=== PATIENT | male | born 1945 ===

== ENCOUNTER 2025-05-12 15:12 | Observation (INO) ==
--- NOTE | 2025-05-12 15:29 | ED Physician Documentation ---
History of Present Illness Stated complaint Stated Complaint: PX Chief complaint Chief Complaint: General History obtained from History obtained from: Patient and Family History of Present Illness Pain level max: 8 Pain level now: 8 Additonal information Additional information: Patient is an 79-year-old male who presents to the emergency department complaining of urination difficulty today. He states that he started having blood in his urine today and then started urinating out large clotted blood. He states that he has not been able to urinate since this morning. Began having abdominal pain so came into the emergency department. He states this has happened to him several times in the past. Has had cauterization on cystoscopy several times. He is not on blood thinners. He does take Jardiance. No fevers or chills. No vomiting. Nothing makes it better or worse. Review of Systems Constitutional Denies: Fever or Chills Ears, nose, mouth, and throat Denies: Neck pain Respiratory Denies: Cough Gastrointestinal Denies: Vomiting, Lavon blood emesis or Coffee grounds in vomit Genitourinary Denies: Flank pain Musculoskeletal Denies: Back pain or Neck pain Integumentary/Breast Denies: Rash Neurological Denies: Headache or General weakness Meds/Allgy Home Medications Ambulatory Orders Medication Instructions Recorded Confirmed atorvastatin 80 mg tablet mg 05/12/25 empagliflozin 25 mg tablet mg 05/12/25 (Jardiance) losartan 50 mg tablet mg 05/12/25 metformin 1,000 mg tablet mg 05/12/25 sertraline 100 mg tablet mg 05/12/25 tamsulosin 0.4 mg capsule mg PO 05/12/25 Allergies Allergies Allergy/AdvReac Type Severity Reaction Status Date / Time No Known Drug Allergies Allergy Verified 05/12/25 15:18 PFSH Active Problems All Active Problems (Updated 05/12/25 @ 16:32 by Enrrique Varghese MD) Acute urinary retention (Acute) Hematuria (Acute) Acute blood loss anemia (Acute) Hemorrhagic cystitis (Acute) Social History Social History Do you feel safe in your home environment?: Yes History of physical, verbal, emotional, or financial abuse?: No Exam Exam Vital Signs: Vital Signs x48h Temp Pulse Resp BP Pulse Ox 05/12/25 15:14 36.3 C L 108 H 20 235/142 H 98 Constitutional normal general appearance Patient appears very uncomfortable, complaining of lower abdominal pain HENMT oral mucous membranes normal Eyes PERRL Neck/C-Spine trachea midline Respiratory breath sounds equal bilaterally and normal respiratory effort Cardiovascular normal heart rate noted and regular rhythm noted Gastrointestinal Tender palpation across the lower abdomen, bladder distended Genitourinary no CVA tenderness Back/Pelvis no thoracic spine tenderness and no lumbar spine tenderness Psychiatry mental status grossly normal and oriented x3 Skin skin color normal Results Vitals Vitals: Vital Signs - 24 hr 05/12/25 15:14 Temperature 36.3 C L Temperature Source Temporal Artery Scan Pulse Rate 108 H Respiratory Rate 20 Blood Pressure 235/142 H O2 Saturation 98 O2 Source Room air Pain Intensity 10 Oxygen O2 Source Room air Labs Labs: Laboratory Tests 05/12/25 15:43 WBC 6.4 RBC 4.99 Hgb 14.4 Hct 44.5 MCV 89.2 MCH 28.9 MCHC 32.4 RDW 15.4 H Plt Count 153 MPV 10.4 Neut # (Auto) 4.6 Lymph # (Auto) 1.2 L [place] # (Auto) 0.4 Eos # (Auto) 0.1 Baso # (Auto) 0.0 Absolute Nucleated RBC 0.00 Nucleated RBC % 0.0 PT 12.0 INR 1.1 APTT 29.4 Sodium 140 Potassium 4.5 Chloride 103 Carbon Dioxide 23 Anion Gap 14.0 H BUN 31 H Creatinine 1.6 H Estimated GFR (MDRD) 42 L Glucose 181 H Calcium 10.9 H Total Bilirubin 0.6 AST 9 L ALT 10 Alkaline Phosphatase 45 Total Protein 7.6 Albumin 4.8 Globulin 2.8 Albumin/Globulin Ratio 1.7 Lipase 17 PD Medical Decision Making ED course Complexity details: reviewed results, re-evaluated patient, considered differential and d/w patient ED course: A three-way Klein catheter was placed with gross blood returned. Continuous bladder irrigation started. Blood pressure and heart rate both decreased. No significant lab abnormalities. Discussed the case with Dr. Robbins, urology on- call, recommends admission to the hospitalist service and he will plan on cystoscopy in the morning. Patient is well-appearing, nontoxic. Afebrile. Discussed the case with the hospitalist who accepts. This document was made in part using voice recognition software. While efforts are made to proofread this document, sound alike and grammatical errors may occur. Discharge Plan Discharge Patient Disposition: 66 [facility] DC/Xfer Condition: Stable Clinical Impression: Hemorrhagic cystitis, Hematuria, Acute urinary retention Prescriptions: No Action losartan 50 mg tablet atorvastatin 80 mg tablet sertraline 100 mg tablet tamsulosin 0.4 mg capsule PO metformin 1,000 mg tablet Jardiance 25 mg tablet Print Language: [place]
[2025-05-12 15:51] LABS: HCT - HEMATOCRIT 44.5 % (42.0-52.0); HGB - HEMOGLOBIN 14.4 g/dL (14.0-18.0); MEAN PLATELET VOLUME 10.4 fL (7.4-11.4); NRBC ABSOLUTE COUNT (AUTO) 0.00 x10^3/uL; NUCLEATED RED BLOOD CELLS AUTO 0.0 /100WBC; PLT - PLATELET COUNT 153 10^3/uL (130-450); RED CELL DISTRIBUTION WIDTH 15.4 % (12.0-15.0)
--- NOTE | 2025-05-12 15:59 | HISTORY & PHYSICAL EXAMINATION ---
Chief Complaint Chief Complaint Chief Complaint: hematuria History of Present Illness Admitted From Admitted From:: ER History Obtained From Records Reviewed: ER History obtained from: patient Exam Limitations: no prior hx History of Present Illness HPI Comment/Other: Tony is an 79-year-old male with history of prostate cancer which was treated with radiation therapy about 9 years ago. 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 He also had hyperbaric oxygen therapy for his radiation cystitis His last major bleeding episode was approximately in November of this year. He denies abdominal surgery or prostate artery embolization for bleeding varices He comes today with sudden onset gross hematuria. Three-way Emndez catheter was placed in the ER and he remains on continuous bladder irrigation. It is grossly bloody but does appear to be lessening. He is hemodynamically stable and his lab work is encouraging with a hemoglobin of 14.4. His creatinine is 1.6 with unclear baseline. He is diabetic and does take Jardiance. Colonoscopy Questionnaire In the last 30 days have you experienced these symptoms? PFSH Active Problems All Active Problems (Updated 05/12/25 @ 18:27 by Benton Robbins MD) Acute urinary retention (Acute) Hematuria (Acute) Acute blood loss anemia (Acute) Hemorrhagic cystitis (Acute) Medical History Medical History (Updated 05/12/25 @ 18:27 by Benton Robbins MD) High cholesterol Depression Diabetes Hypertension Social History Social History (Updated 05/12/25 @ 17:37 by Mary Penaloza RN) Smoking Status: Unknown if ever smoked Living arrangement: At home Do you feel safe in your home environment?: Yes History of physical, verbal, emotional, or financial abuse?: No Meds/Allgy Home Medications Ambulatory Orders Medication Instructions Recorded Confirmed atorvastatin 80 mg tablet mg 05/12/25 empagliflozin 25 mg tablet mg 05/12/25 (Jardiance) losartan 50 mg tablet mg 05/12/25 metformin 1,000 mg tablet mg 05/12/25 sertraline 100 mg tablet mg 05/12/25 tamsulosin 0.4 mg capsule mg PO 05/12/25 Allergies Allergies Allergy/AdvReac Type Severity Reaction Status Date / Time No Known Drug Allergies Allergy Verified 05/12/25 15:18 Results Lab Results Lab results reviewed: Yes 05/12/25 15:43 05/12/25 15:43 Other Lab Results: Lab Results x24hrs 05/12/25 Range/Units 15:43 WBC 6.4 (4.8-10.8) x10^3/uL RBC 4.99 (4.70-6.10) 10^6/uL Hgb 14.4 (14.0-18.0) g/dL Hct 44.5 (42.0-52.0) % MCV 89.2 (80.0-94.0) fL MCH 28.9 (27.0-31.0) pg MCHC 32.4 (32.0-36.0) g/dL RDW 15.4 H (12.0-15.0) % Plt Count 153 (130-450) 10^3/uL MPV 10.4 (7.4-11.4) fL Neut # (Auto) 4.6 (1.5-6.6) 10^3/uL Lymph # (Auto) 1.2 L (1.5-3.5) 10^3/uL [place] # (Auto) 0.4 (0.0-1.0) 10^3/uL Eos # (Auto) 0.1 (0.0-0.7) 10^3/uL Baso # (Auto) 0.0 (0.0-0.1) 10^3/uL Absolute Nucleated RBC 0.00 x10^3/uL Nucleated RBC % 0.0 /100WBC Exam Exam Vital Signs: Vital Signs x48h Temp Pulse Resp BP Pulse Ox 05/12/25 15:14 36.3 C L 108 H 20 235/[address], red translucent effluent on slow drip CBI Impression/Plan Problem List (1) Hematuria: Plan: 79-year-old male with history of prostate cancer treated with radiation therapy 9 years ago with recurrent radiation cystitis and hematuria now presents with similar gross hematuria. Admitted to the medical service N.p.o./IV fluids Add-on for cystoscopy, clot evacuation, fulguration of bleeding areas. The risks, benefits, alternatives were discussed with the patient. Specific risks of infection, bleeding, injury to adjacent structures, need for additional procedures, failure of therapy, anesthesia risks including heart attack, stroke, pulmonary embolization were discussed He will be added on for tomorrow morning The patient states understanding and consents to the above plan Qualifiers: Hematuria type: gross Qualified Code(s): R31.0 - Gross hematuria
[2025-05-12 16:04] LABS: ALT ALANINE AMINOTRANSFERASE 10.0 IU/L (10-60); AST ASPARTATE AMINOTRANSFERASE 9.0 IU/L (10-42); BUN - BLOOD UREA NITROGEN 31.0 mg/dL (6-20); CARBON DIOXIDE - CO2 23.0 mmol/L (21-32); CREATININE 1.6 mg/dL (0.6-1.3); GFR - MDRD 42.0 (>89)
[2025-05-12 16:06] LABS: INR 1.1 (0.8-1.2); PT - PROTHROMBIN TIME 12.0 secs (9.9-12.6)
[2025-05-12] MEDS: LIDOCAINE 2% URO-JET 5 ML SYRINGE UR STA (17:07)
[2025-05-12] MEDS ORDERED: ONDANSETRON ODT 4 MG TABLET TL PRN (17:48)
[2025-05-12] MEDS ORDERED: ONDANSETRON 4 MG/2 ML VIAL IVP PRN (17:48)
[2025-05-12] MEDS: INSULIN LISPRO 300 UNIT/3 ML PEN SUBQ SCH (17:55)
[2025-05-12] MEDS: SODIUM CHLORIDE 0.9% 1,000 ML IV SCH (18:55)
[2025-05-12] MEDS: SODIUM CHLORIDE FLUSH 0.9% 10 ML SYRINGE IVP SCH (19:00)
--- NOTE | 2025-05-12 19:04 | CONSULTATION NOTE ---
Referring Provider Name of Referring Provider:: Benton Robbins MD Consult Date: 05/12/25 Chief Complaint Chief Complaint Chief Complaint: Bloody urine History of Present Illness Admitted From Admitted From:: Home History Obtained From Records Reviewed: [facility] History obtained from: Patient and daughter Exam Limitations: None History of Present Illness HPI Comment/Other: This randal gentleman is an 79-year-old male that has a history of prostate cancer from 9 years ago. He has had a prostatectomy, radiation. Since that time he has problems with intermittent hematuria. 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 He is frustrated because he alternates between urinary retention and urinary incontinence. He does not understand the mechanics of his bladder or urinary system. He has also had a history of kidney stones. He does not know was more painful, kidney stones or urinary retention with bladder spasm. He is urologist is Dr. Rolly Thompson with [facility]. He thinks that Dr. Thompson is frustrated with him because he cannot seem to "figure out what is wrong with me". He has a house in [place]. And [place] and was here fishing. The patient is not on blood thinners. He has not had any constipation. But he does have intermittent diarrhea. He had diarrhea yesterday and today and took 2 Imodium this morning and 1 Imodium an hour later. No blood in the stool. Accompanying this was bloody urine. The blood then turned into torin blood clots and he could not pee starting this morning. The abdominal pain has been terrible. Is located over the lower abdomen and radiated up into his flanks. He says almost as bad as his kidney stones. He denies fever, chills. On presentation his temperature was 36.3, heart rate was 108, respirations 20, O2 sat 98% on room air and his blood pressure was 235/142. A Klein was placed and his blood pressure dropped to 109/75, pulse rate dropped to 90. No imaging has been done. Anion gap was 14. BUN 31, creatinine 1.6. Glucose 181. Calcium 10.9. Potassium normal. White cell count was 6.4, hemoglobin 14.4. The Klein placement did result in immediate urine output. There is quite a bit of clots. Urology was consulted and the patient is now on continuous bladder irrigation and the plan is for him to go to the operating room tomorrow for cystoscopy. Urology is asking that we consult for control of his medical issues. On review of systems the patient states that he does have hearing aids in place. Vision is going. No dentures. He denies coughing, wheezing, bronchitis. He does have obstructive sleep apnea and is supposed to be using his CPAP mask but stopped using it about 2 years ago because getting up to urinate frequently at night made it inconvenient to put the CPAP mask back on. He does not know if it made a difference on his apnea or not. He has never had angina, congestive heart failure, arrhythmia. He has had a recent change in bowel habits and that he has had the diarrhea but he states that he has had diarrhea off and on over the years. It comes and goes. It is watery. No blood. No recent weight changes. He has osteoarthritis. He has already had 1 knee replacement, and 2 hip replacements. Currently he is using a cane because his right knee really hurts and he is afraid of falling because it will go out from underneath him. No rashes. He is depressed and it comes and goes. He has always had depression and is not any worse than usual. No suicidal ideation. But he just feels an overall loss of energy over the last couple of years. He can sleep 12 hours at night, get up and eat breakfast, and go back to sleep again. He denies fevers, sweats at night. Memory loss is slightly progressive over the last 2 years. He has 4 children. One of his daughters moved to live with him 2 years ago. She did it because she has triple negative breast cancer and it was easier for her to move in with him so that she can complete her therapy. She has noticed that he is having more memory problems, more word finding problems, and just fatigue. But no syncope, seizures, dizziness. He is still self-sufficient. He drives a car, does laundry, cooking, cleaning. Occasionally he does little help with paying the bills. Meds/Allgy Home Medications Ambulatory Orders Medication Instructions Recorded Confirmed atorvastatin 80 mg tablet mg 05/12/25 empagliflozin 25 mg tablet mg 05/12/25 (Jardiance) losartan 50 mg tablet mg 05/12/25 metformin 1,000 mg tablet mg 05/12/25 sertraline 100 mg tablet mg 05/12/25 tamsulosin 0.4 mg capsule mg PO 05/12/25 Allergies Allergies Allergy/AdvReac Type Severity Reaction Status Date / Time No Known Drug Allergies Allergy Verified 05/12/25 15:18 PFSH Active Problems All Active Problems (Updated 05/12/25 @ 19:35 by Carmel Currie MD) Full code status (Acute) Acute urinary retention (Acute) Hematuria (Acute) Medical History Medical History (Updated 05/12/25 @ 19:35 by Carmel Currie MD) Fatigue Memory loss LUKE on CPAP Osteoarthritis Prostate cancer High cholesterol Depression Diabetes Hypertension Surgical History Surgical History (Updated 05/12/25 @ 19:11 by Carmel Currie MD) History of colonoscopy H/O cystoscopy H/O prostatectomy H/O bilateral hip replacements History of total left knee replacement Family History Family History (Updated 05/12/25 @ 19:15 by Carmel Currie MD) Father No problems noted. Mother CHF (congestive heart failure) Brother CAD (coronary artery disease) Brother Myelodysplastic syndrome Sister Cancer Daughter Cancer Daughter Well adult exam Son Well adult exam Social History Social History (Updated 05/12/25 @ 19:18 by Carmel Currie MD) Smoking Status: Never smoker Second hand tobacco smoke exposure: No Do you dip or chew tobacco?: No Do you vape?: No Living arrangement: At home Marital Status: Living Condition: With family Support Person: Yes Relationship Notes: Son Moise is DPOA, daughter Citlaly is POA Living Situation Details: 18 years. Usually lives alone but daughter currently living with him to complete breast cancer therapy Has a Durable Power of Conference Translator for Health Care?: Yes Name / Relationship: ellie Phipps on file?: No Has Health Care Directive?: Yes Health Care Directive on file?: No Level: Independent Home Mobility Equipment: Cane Physical - Functional Details: Uses a cane for right knee pain Do you feel safe in your home environment?: Yes History of physical, verbal, emotional, or financial abuse?: No ETOH Use: None Substance Use: denies use Occupation - Current: Retired teacher. Retired: Yes Service: No POLST Patient has POLST: No Results Lab Results Lab results reviewed: Yes 05/12/25 15:43 05/12/25 15:43 Other Lab Results: Lab Results x24hrs 05/12/25 05/12/25 05/12/25 Range/Units 17:36 16:43 15:43 WBC 6.4 (4.8-10.8) x10^3/uL RBC 4.99 (4.70-6.10) 10^6/uL Hgb 14.4 (14.0-18.0) g/dL Hct 44.5 (42.0-52.0) % MCV 89.2 (80.0-94.0) fL MCH 28.9 (27.0-31.0) pg MCHC 32.4 (32.0-36.0) g/dL RDW 15.4 H (12.0-15.0) % Plt Count 153 (130-450) 10^3/uL MPV 10.4 (7.4-11.4) fL Neut # (Auto) 4.6 (1.5-6.6) 10^3/uL Lymph # (Auto) 1.2 L (1.5-3.5) 10^3/uL [place] # (Auto) 0.4 (0.0-1.0) 10^3/uL Eos # (Auto) 0.1 (0.0-0.7) 10^3/uL Baso # (Auto) 0.0 (0.0-0.1) 10^3/uL Absolute Nucleated RBC 0.00 x10^3/uL Nucleated RBC % 0.0 /100WBC PT 12.0 (9.9-12.6) secs INR 1.1 (0.8-1.2) APTT 29.4 (24.9-33.3) secs Sodium 140 (135-145) mmol/L Potassium 4.5 (3.5-4.5) mmol/L Chloride 103 (101-111) mmol/L Carbon Dioxide 23 (21-32) mmol/L Anion Gap 14.0 H (6-13) BUN 31 H (6-20) mg/dL Creatinine 1.6 H (0.6-1.3) mg/dL Estimated GFR (MDRD) 42 L (>89) Glucose 181 H (74-104) mg/dL POC Whole Bld Glucose 135 (70-100) mg/dL Calcium 10.6 H 10.9 H (8.5-10.3) mg/dL Total Bilirubin 0.6 (0.2-1.0) mg/dL AST 9 L (10-42) IU/L ALT 10 (10-60) IU/L Alkaline Phosphatase 45 (42-121) IU/L Total Protein 7.6 (6.4-8.9) g/dL Albumin 4.8 (3.2-5.5) g/dL Globulin 2.8 (2.1-4.2) g/dL Albumin/Globulin Ratio 1.7 (1.0-2.2) Lipase 17 (11-82) U/L Exam Exam Vital Signs: Vital Signs x48h Temp Pulse Pulse Resp BP BP Pulse Ox 05/12/25 17:27 36.8 C 84 18 162/91 H 94 05/12/25 16:56 37.9 C 90 18 109/75 95 05/12/25 15:14 36.3 C L 108 H 20 235/142 H 98 Constitutional normal general appearance and no apparent distress 5 feet 5 inches tall, 75.5 kg. Looks stated age. Slightly stuttering speech and word finding. Slightly tremulous when reaching with his hands. HENMT normocephalic and head/scalp atraumatic Hearing aids in place. Eyes PERRL, EOMs intact bilaterally and no scleral icterus Neck/C-Spine supple and no carotid bruits Chest inspection of chest normal Respiratory breath sounds equal bilaterally, normal respiratory effort, clear to auscultation bilaterally, no wheezes, no rales and no retractions Cardiovascular normal heart rate noted, regular rhythm noted, no gallop, no rub and no murmur Gastrointestinal abdomen normal to inspection, abdomen soft to palpation, nontender to palpation and nontender to percussion Klein/CBI in place. Draining bright red urine Genitourinary no CVA tenderness and bladder normal to palpation Back/Pelvis spine normal to inspection Extremities normal to palpation, no tenderness and full ROM Right fifth finger is deformed from a previous fracture decades ago Neurology foreign food cook specialty II-XII intact, no movement abnormality noted (Occasionally a intention tremor but I think it is fatigue. He does not usu), no focal motor deficit noted and no sensory deficits noted Psychiatry oriented x3, thought process normal and memory abnormal (Occasional hesitation in speech, occasional word finding, occasional vague ) (short term memory loss) Skin skin color normal, no rash and no lesions Conclusion/Plan Problem List (1) Hematuria: Plan: This is a randal man whose had radiation to his prostate. Has documented changes in his bladder from radiation that may include an early bladder cancer. I would suspect that his bleeding is either from prostatitis or cystitis with a consequence from previous radiation. He has had previous urologic care on a regular basis. From a preoperative perspective he does not have a history of recent MO. He has no history of atrial fibrillation or any significant valvular heart disease. No significant lung disease other than obstructive sleep apnea. He is not on any blood thinners. There is risk for procedure would be normal risk. Plan: The amount of hematuria is severe. CBI in place. Urology has admitted the patient and we are consulted to manage the medical problems. I will be following his hemoglobin to make sure we do not need to transfuse this randal man. Qualifiers: Hematuria type: gross Qualified Code(s): R31.0 - Gross hematuria (2) Diabetes: Plan: On Jardiance and metformin. Both of those will be held while he is in the hospital. Urology is recommending that he might want to come off of the Jardiance. My plan is to use sliding scale insulin while he is here. Check an A1c tomorrow. (3) Hypertension: Plan: Severely uncontrolled on admission when his bladder was distended. Now that the Klein is in place, blood pressures come down and is 161/91. I will resume his losartan. (4) Fatigue: Plan: Recent change. He says that he is just exhausted these days and just seems foggy or, more fatigued, sleeping more often. Coincidentally noted to have stopped he is sleep mask around the same time that he started getting tired. His word finding and memory loss waxes and wanes. There are days that he has no problems at all and days where it just seems to be very problematic. Daughter notes that this seems to get worse when he gets sick like now. I recommended that he see his primary care provider in follow-up. Get carotid Dopplers. Recheck his O2 saturations at night to make sure that he is not desatting more than he realizes. I will check a TSH tomorrow. (5) Full code status: Plan: He says that he took care of a lot of paperwork about 20 years ago. All 4 of his kids were texted and asked about DPOA and POA status. He also cannot remember if he requested to be DNR or full code. His son Moise thinks that he is the DPOA. And his daughter Citlaly thinks that she may be the POA for financial matters but they are also not sure. He says that the advanced directive from 20 years ago was most likely a full code but he cannot remember. He does note that he recognizes that he is getting older and he may want to consider being a DNR. He knows that if he is "barely alive and no possibility of recovering his baseline status" he wants to be DNR. If he has a stroke with severe residual he wants to be DNR. I told him that he should probably put all of this in writing. He should clear up with his family who is the DPOA and POA. I also asked him to consider what his plans would be if he could no longer take care of himself. He thinks that he would most likely have his son take care of him for a while. In the end of his knees were too great, he wants to move to an assisted living facility. Lab Results Lab results reviewed: Yes 05/12/25 15:43 05/12/25 15:43
[2025-05-13] MEDS: oxyCODONE 5 MG TABLET PO PRN (02:31)
[2025-05-13] MEDS: MORPHINE 2 MG/ML CARPUJECT IVP SCH (03:33)
[2025-05-13] MEDS: SODIUM CHLORIDE FLUSH 0.9% 10 ML SYRINGE IVP PRN (03:34)
[2025-05-13 06:09] LABS: HCT - HEMATOCRIT 36.4 % (42.0-52.0); HGB - HEMOGLOBIN 11.9 g/dL (14.0-18.0); MEAN PLATELET VOLUME 9.8 fL (7.4-11.4); NRBC ABSOLUTE COUNT (AUTO) 0.00 x10^3/uL; NUCLEATED RED BLOOD CELLS AUTO 0.0 /100WBC; PLT - PLATELET COUNT 132 10^3/uL (130-450); RED CELL DISTRIBUTION WIDTH 15.3 % (12.0-15.0)
[2025-05-13 06:26] LABS: BUN - BLOOD UREA NITROGEN 30 mg/dL (6-20); CARBON DIOXIDE - CO2 24 mmol/L (21-32); CREATININE 1.5 mg/dL (0.6-1.3); GFR - MDRD 45 (>89); IONIZED CALCIUM IF INDICATED NO
[2025-05-13] MEDS ORDERED: LIDOCAINE 2% URO-JET 5 ML SYRINGE UR ONE (07:44)
[2025-05-13] MEDS ORDERED: LACTATED RINGERS 1,000 ML IV PRN (07:59)
--- NOTE | 2025-05-13 08:06 | Preop H&P Attestation ---
Preop H&P Attestation Preop History & Physical Preop H&P Date: 05/12/25 History & Physical Reviewed and patient examined today.: Changes noted -: overnight clotted off and I came to hospital to irrigate and clear now running mostly clear on slow drip cbi RRR CTA b/l to OR for procedure, patient concurs
[2025-05-13 08:12] LABS: ESTIMATED AVERAGE GLUCOSE 166 mg/dL (70-100); HEMOGLOBIN A1c% 7.4 % (4.27-6.07)
[2025-05-13] MEDS ORDERED: PROPOFOL 200 MG/20 ML VIAL IVP ONE (09:17)
[2025-05-13] MEDS ORDERED: ROCURONIUM 50 MG/5 ML VIAL ONE (09:17)
[2025-05-13] MEDS ORDERED: fentaNYL 100 MCG/2 ML VIAL ONE (09:17)
[2025-05-13] MEDS ORDERED: PHENYLEPHRINE HCL 0.5 MG/5 ML AMPULE ONE (09:36)
[2025-05-13] MEDS ORDERED: SUGAMMADEX 200 MG/2 ML VIAL IVP ONE (09:47)
[2025-05-13] MEDS ORDERED: DEXAMETHASONE 4 MG/ML VIAL ONE (09:47)
[2025-05-13] MEDS ORDERED: ONDANSETRON 4 MG/2 ML VIAL ONE (09:47)
--- NOTE | 2025-05-13 09:50 | OPERATIVE REPORT ---
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 The patient was anesthetized per anesthesia protocols and prepped and draped in the usual sterile fashion in the dorsal lithotomy position. A formal timeout was performed reconfirming the patient and procedure and laterality. A 26 Serbian resectoscope was advanced easily per urethra into the urinary bladder. He had a short and widely open prostate which was minimally obstructing. He had copious quantities of clots in his bladder. Using an [employer] evacuator we evacuated out about 100 cc of old clot. We then reinspected the bladder and we could see no bleeding areas. He did have diffuse erythema. A few sites were quite deeply red and so using loop electrocautery and the bipolar setting we fulgurated these areas. There was excellent hemostasis We emptied his bladder and a Uro-Jet was placed. We then placed a 22 Serbian three-way Klein catheter with 30 cc in the balloon and placed him on gentle continuous bladder irrigation He was reversed of anesthesia and brought to the PACU without further incident. He will return to the medical floor. He will likely go home later today. It is my preference he goes home without the catheter however he may prefer to go home with a catheter. He will follow-up with myself or with his outside urologist
[2025-05-13] MEDS ORDERED: fentaNYL 100 MCG/2 ML VIAL IVP PRN (10:19)
[2025-05-13] MEDS ORDERED: HYDROmorphone 0.5 MG/0.5 ML SYRINGE IVP PRN (10:19)
[2025-05-13] MEDS ORDERED: ONDANSETRON 4 MG/2 ML VIAL IVP PRN (10:19)
[2025-05-13] MEDS ORDERED: ePHEDrine 50 MG/ML VIAL IVP PRN (10:19)
[2025-05-13] MEDS ORDERED: NALOXONE 0.4 MG/ML VIAL IVP PRN (10:19)
[2025-05-13] MEDS ORDERED: METOCLOPRAMIDE 10 MG/2 ML VIAL IVP PRN (10:19)
--- NOTE | 2025-05-13 10:24 | ANESTHESIA PROCEDURE NOTE ---
Pre-Anesthesia VS, & Labs Diagnosis Surgical Diagnosis:: Hematuria Procedure Procedure: Cystoscopy, clot evacuation Vitals Vital Signs: Temp Pulse Resp BP Pulse Ox 37.3 C 90 20 118/74 96 05/13/25 07:36 05/13/25 07:36 05/13/25 07:36 05/13/25 07:36 05/13/25 07:36 NPO NPO: >8 hours Lab Results Current Lab Results: Laboratory Tests 05/13/25 10:04: POC Whole Bld Glucose 140 05/13/25 08:11: POC Whole Bld Glucose 161 05/13/25 06:05: TSH 1.67 05/13/25 05:54: WBC 10.2, RBC 4.07 L, Hgb 11.9 L, Hct 36.4 L, MCV 89.4, MCH 29.2, MCHC 32.7, RDW 15.3 H, Plt Count 132, MPV 9.8, Neut # (Auto) 8.9 H, Lymph # (Auto) 0.6 L, Howell # (Auto) 0.6, Eos # (Auto) 0.0, Baso # (Auto) 0.0, Absolute Nucleated RBC 0.00, Nucleated RBC % 0.0, Sodium 138, Potassium 4.5, Chloride 107, Carbon Dioxide 24, Anion Gap 7.0, BUN 30 H, Creatinine 1.5 H, Estimated GFR (MDRD) 45 L, Glucose 186 H, Estimat Average Glucose 166 H, Hemoglobin A1c % 7.4 H, Calcium 9.9, Ionized Calcium NO 05/12/25 20:35: POC Whole Bld Glucose 153 05/12/25 17:36: POC Whole Bld Glucose 135 05/12/25 16:43: Calcium 10.6 H 05/12/25 15:43: WBC 6.4, RBC 4.99, Hgb 14.4, Hct 44.5, MCV 89.2, MCH 28.9, MCHC 32.4, RDW 15.4 H, Plt Count 153, MPV 10.4, Neut # (Auto) 4.6, Lymph # (Auto) 1.2 L, Howell # (Auto) 0.4, Eos # (Auto) 0.1, Baso # (Auto) 0.0, Absolute Nucleated RBC 0.00, Nucleated RBC % 0.0, PT 12.0, INR 1.1, APTT 29.4, Sodium 140, Potassium 4.5, Chloride 103, Carbon Dioxide 23, Anion Gap 14.0 H, BUN 31 H, C reatinine 1.6 H, Estimated GFR (MDRD) 42 L, Glucose 181 H, Calcium 10.9 H, Total Bilirubin 0.6, AST 9 L, ALT 10, Alkaline Phosphatase 45, Total Protein 7.6, Albumin 4.8, Globulin 2.8, Albumin/Globulin Ratio 1.7, Lipase 17 05/13/25 05:54 05/13/25 05:54 Meds/Allgy Home Medications Ambulatory Orders Medication Instructions Recorded Confirmed atorvastatin 80 mg tablet 40 mg PO QPM 05/12/25 empagliflozin 25 mg tablet 25 mg PO DAILY 05/12/25 (Jardiance) losartan 50 mg tablet 75 mg PO DAILY 05/12/25 metformin 1,000 mg tablet 1,000 mg PO BID 05/12/25 sertraline 100 mg tablet 200 mg PO DAILY 05/12/25 tamsulosin 0.4 mg capsule 0.8 mg PO DAILY 05/12/25 Allergies Allergies Allergy/AdvReac Type Severity Reaction Status Date / Time No Known Drug Allergies Allergy Verified 05/12/25 15:18 PFSH Active Problems All Active Problems Full code status (Acute) Acute urinary retention (Acute) Hematuria (Acute) Medical History Medical History Fatigue Memory loss LUKE on CPAP Osteoarthritis Prostate cancer High cholesterol Depression Diabetes Hypertension Surgical History Surgical History History of colonoscopy H/O cystoscopy H/O prostatectomy H/O bilateral hip replacements History of total left knee replacement Family History Family History Father No problems noted. Mother CHF (congestive heart failure) Brother CAD (coronary artery disease) Brother Myelodysplastic syndrome Sister Cancer Daughter Cancer Daughter Well adult exam Son Well adult exam Social History Social History Smoking Status: Never smoker Second hand tobacco smoke exposure: No Do you dip or chew tobacco?: No Do you vape?: No Living arrangement: At home Marital Status: Living Condition: With family Support Person: Yes Relationship Notes: Son Moise is DPOA, daughter Citlaly is POA Living Situation Details: 18 years. Usually lives alone but daughter currently living with him to complete breast cancer therapy Has a Durable Power of Medical Administrative Assistant for Health Care?: Yes Name / Relationship: ellie Phipps on file?: No Has Health Care Directive?: Yes Health Care Directive on file?: No Level: Independent Home Mobility Equipment: Cane Physical - Functional Details: Uses a cane for right knee pain Do you feel safe in your home environment?: Yes History of physical, verbal, emotional, or financial abuse?: No ETOH Use: None Substance Use: denies use Occupation - Current: Retired teacher. Retired: Yes Service: No POLST Patient has POLST: No Anesthesia Exam (Expanded) Exam General: Alert, Oriented x3 and No acute distress Dental: WNL Mouth Openin Fingerbreadth Neck Mobility: Normal Mallampati classification: II Thyromental Distance: 4-6 cm Respiratory: Lungs clear and Normal breath sounds Cognitive Status: Within normal limits Exam Exam Vital Signs: Vital Signs x48h Temp Pulse Resp BP BP Pulse Ox 05/13/25 07:36 37.3 C 90 20 118/74 96 05/13/25 04:45 36.8 C 84 16 116/88 96 Constitutional normal general appearance and no apparent distress Neck/C-Spine cervical full ROM noted Respiratory breath sounds equal bilaterally and normal respiratory effort Cardiovascular normal heart rate noted sinus arrhythmia Genitourinary Hematuria, CBI Plan Problem List (1) Hematuria: Plan: This is a randal man whose had radiation to his prostate. Has documented changes in his bladder from radiation that may include an early bladder cancer. I would suspect that his bleeding is either from prostatitis or cystitis with a consequence from previous radiation. He has had previous urologic care on a regular basis. From a preoperative perspective he does not have a history of recent DC. He has no history of atrial fibrillation or any significant valvular heart disease. No significant lung disease other than obstructive sleep apnea. He is not on any blood thinners. There is risk for procedure would be normal risk. Plan: The amount of hematuria is severe. CBI in place. Urology has admitted the patient and we are consulted to manage the medical problems. I will be following his hemoglobin to make sure we do not need to transfuse this randal man. Qualifiers: Hematuria type: gross Qualified Code(s): R31.0 - Gross hematuria (2) Diabetes: Plan: On Jardiance and metformin. Both of those will be held while he is in the hospital. Urology is recommending that he might want to come off of the Jardiance. My plan is to use sliding scale insulin while he is here. Check an A1c tomorrow. (3) Hypertension: Plan: Severely uncontrolled on admission when his bladder was distended. Now that the Klein is in place, blood pressures come down and is 161/91. I will resume his losartan. (4) Fatigue: Plan: Recent change. He says that he is just exhausted these days and just seems foggy or, more fatigued, sleeping more often. Coincidentally noted to have stopped he is sleep mask around the same time that he started getting tired. His word finding and memory loss waxes and wanes. There are days that he has no problems at all and days where it just seems to be very problematic. Daughter notes that this seems to get worse when he gets sick like now. I recommended that he see his primary care provider in follow-up. Get carotid Dopplers. Recheck his O2 saturations at night to make sure that he is not desatting more than he realizes. I will check a TSH tomorrow. (5) Full code status: Plan: He says that he took care of a lot of paperwork about 20 years ago. All 4 of his kids were texted and asked about DPOA and POA status. He also cannot remember if he requested to be DNR or full code. His son Moise thinks that he is the DPOA. And his daughter Citlaly thinks that she may be the POA for financial matters but they are also not sure. He says that the advanced directive from 20 years ago was most likely a full code but he cannot remember. He does note that he recognizes that he is getting older and he may want to consider being a DNR. He knows that if he is "barely alive and no possibility of recovering his baseline status" he wants to be DNR. If he has a stroke with severe residual he wants to be DNR. I told him that he should probably put all of this in writing. He should clear up with his family who is the DPOA and POA. I also asked him to consider what his plans would be if he could no longer take care of himself. He thinks that he would most likely have his son take care of him for a while. In the end of his knees were too great, he wants to move to an assisted living facility. Plan Anesthesia Type: General Consent for Procedure(s) Verified and Reviewed: Yes Code Status: Attempt Resuscitation ASA Classification ASA classification: 3-Severe systemic disease Is this case an emergency?: Yes
--- NOTE | 2025-05-13 10:24 | ANESTHESIA POST OP EVALUATION ---
Anesthesia Post Eval Post Anesthesia Eval Vitals: Last Vital Signs Temp 37.3 C 05/13/25 07:36 Pulse 90 05/13/25 07:36 Resp 20 05/13/25 07:36 BP 118/74 05/13/25 07:36 Pulse Ox 96 05/13/25 07:36 CV Function Including HR & BP: Stable Pain Control: Satisfactory Nausea & Vomiting: Negative Mental Status: Baseline Respiratory Status: Airway Patent Hydration Status: Satisfactory Anesthesia Complications: None
[2025-05-13] MEDS: ceFAZolin (2G) 2 GM in SODIUM CHLORIDE 0.9% MINIBAG 100 ML IV ONE (10:40)
[2025-05-13] MEDS: TAMSULOSIN 0.4 MG CAPSULE PO SCH (10:57)
[2025-05-13] MEDS: SERTRALINE 50 MG TABLET PO SCH (10:57)
[2025-05-13] MEDS: LOSARTAN 50 MG TABLET PO SCH (10:58)
[2025-05-13] MEDS ORDERED: LACTATED RINGERS 1,000 ML IV SCH (11:00)
--- NOTE | 2025-05-13 11:14 | Discharge Summary ---
Discharge Summary Admit Date: 05/12/25 Discharge Date: 05/13/25 Discharging Provider: Dr. Kaitlin Méndez Primary Care Provider: Chapin Platt Code Status: Attempt Resuscitation Discharge Facility Name: Home, self care DIAGNOSES Discharge Diagnoses with Status of Each Condition: Hematuriaresolved. Patient presented with gross hematuria, extensive blood clots. He was placed on CBI, and taken for cystoscopy with urology. Here, clot evacuation, fulguration of bleeding was completed. Plan is to discharge the patient with the Klein and close follow-up with urology. He had bladder cancer in the past, and has resultant radiation cystitis. Diabetescontinue metformin. Jardiance to be discontinued at this time. Hypertensioncurrently hypotensive. Advised to hold his losartan on discharge for 1 to 2 weeks until he follows up with his primary care provider. HPI History of Present Illness: Delroy Currie: This randal gentleman is an 79-year-old male that has a history of prostate cancer from 9 years ago. He has had a prostatectomy, radiation. Since that time he has problems with intermittent hematuria. 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 He is frustrated because he alternates between urinary retention and urinary incontinence. He does not understand the mechanics of his bladder or urinary system. He has also had a history of kidney stones. He does not know was more painful, kidney stones or urinary retention with bladder spasm. He is urologist is Dr. Rolly Thompson with [facility]. He thinks that Dr. Thompson is frustrated with him because he cannot seem to "figure out what is wrong with me". He has a house in [place]. And [place] and was here fishing. The patient is not on blood thinners. He has not had any constipation. But he does have intermittent diarrhea. He had diarrhea yesterday and today and took 2 Imodium this morning and 1 Imodium an hour later. No blood in the stool. Accompanying this was bloody urine. The blood then turned into torin blood clots and he could not pee starting this morning. The abdominal pain has been terrible. Is located over the lower abdomen and radiated up into his flanks. He says almost as bad as his kidney stones. He denies fever, chills. On presentation his temperature was 36.3, heart rate was 108, respirations 20, O2 sat 98% on room air and his blood pressure was 235/142. A Klein was placed and his blood pressure dropped to 109/75, pulse rate dropped to 90. No imaging has been done. Anion gap was 14. BUN 31, creatinine 1.6. Glucose 181. Calcium 10.9. Potassium normal. White cell count was 6.4, hemoglobin 14.4. The Klein placement did result in immediate urine output. There is quite a bit of clots. Urology was consulted and the patient is now on continuous bladder irrigation and the plan is for him to go to the operating room tomorrow for cystoscopy. Urology is asking that we consult for control of his medical issues. On review of systems the patient states that he does have hearing aids in place. Vision is going. No dentures. He denies coughing, wheezing, bronchitis. He does have obstructive sleep apnea and is supposed to be using his CPAP mask but stopped using it about 2 years ago because getting up to urinate frequently at night made it inconvenient to put the CPAP mask back on. He does not know if it made a difference on his apnea or not. He has never had angina, congestive heart failure, arrhythmia. He has had a recent change in bowel habits and that he has had the diarrhea but he states that he has had diarrhea off and on over the years. It comes and goes. It is watery. No blood. No recent weight changes. He has osteoarthritis. He has already had 1 knee replacement, and 2 hip replacements. Currently he is using a cane because his right knee really hurts and he is afraid of falling because it will go out from underneath him. No rashes. He is depressed and it comes and goes. He has always had depression and is not any worse than usual. No suicidal ideation. But he just feels an overall loss of energy over the last couple of years. He can sleep 12 hours at night, get up and eat breakfast, and go back to sleep again. He denies fevers, sweats at night. Memory loss is slightly progressive over the last 2 years. He has 4 children. One of his daughters moved to live with him 2 years ago. She did it because she has triple negative breast cancer and it was easier for her to move in with him so that she can complete her therapy. She has noticed that he is having more memory problems, more word finding problems, and just fatigue. But no syncope, seizures, dizziness. He is still self-sufficient. He drives a car, does laundry, cooking, cleaning. Occasionally he does little help with paying the bills. CONSULTS | PROCEDURES Consultations: Urology Procedures: Cystoscopy with clot evacuation, Klein catheter placement and continuous bladder irrigation HOSPITAL COURSE Hospital Course: Patient is a 79-year-old male with a history of prostate cancer s/p prostatectomy and radiation who presented with painful urination, gross hematuria. When he presented, Klein catheter was placed, and patient was placed on continuous bladder irrigation. Urology was consulted, and they completed a cystoscopy this morning with clot evacuation and fulguration of bleeding. His hemoglobin remained stable. He will be discharged home with a Klein catheter. After the procedure, his urine has been clear, with no bleeding. After surgery, he was a little hypotensive. He received IV fluids with improvement of his blood pressure. He was advised to hold his losartan on discharge for 1 to 2 weeks until follow-up with his primary care provider. Once again, he will be discharged with a Klein catheter, and he will need close follow-up with a urologist. [place] care [place] a urologist closer to home. He was also advised to discontinue his Jardiance. He was advised to continue his metformin, continue carb controlled diet, and once again, follow with his primary care provider for rechecking of his A1c. Overall, patient was deemed suitable for discharge home with close follow-up with his primary care provider as well as a urologist. ALLERGIES Allergies Allergy/AdvReac Type Severity Reaction Status Date / Time No Known Drug Allergies Allergy Verified 05/12/25 15:18 MEDICATIONS Ambulatory Orders Medication Instructions Recorded Confirmed atorvastatin 80 mg tablet 40 mg PO QPM 05/12/25 empagliflozin 25 mg tablet 25 mg PO DAILY 05/12/25 (Jardiance) Held on 05/13/25. Instructions: Resume on 05/27/25. Hold, per urologist. losartan 50 mg tablet 75 mg PO DAILY 05/12/2504/17 Held on 05/13/25. Instructions: Resume on 05/27/25. Hold until follow up with PCP. metformin 1,000 mg tablet 1,000 mg PO BID 05/12/25 sertraline 100 mg tablet 200 mg PO DAILY 05/12/25 tamsulosin 0.4 mg capsule 0.4 mg PO DAILY 05/12/25 cefdinir 300 mg capsule 300 mg PO BID 3 days #6 caps 05/13/25 PHYSICAL EXAM AT DISCHARGE Vital Signs: Vital Signs x48h Temp Pulse Pulse Resp BP BP BP 05/13/25 16:53 98.6 F 82 17 121/56 L 05/13/25 15:11 98.8 F 96 16 97/52 L 05/13/25 13:00 97.7 F 101 H 16 109/65 05/13/25 12:53 99.1 F 97 18 119/69 05/13/25 11:53 99.1 F 98 16 127/96 H 05/13/25 10:53 98.1 F 100 16 102/70 05/13/25 10:23 98.8 F 89 20 137/97 H 05/13/25 10:10 685.4 F H 85 16 128/77 05/13/25 10:05 88 14 145/69 H 05/13/25 09:59 99.9 F 86 16 153/78 H Pulse Ox 05/13/25 16:53 94 05/13/25 15:11 93 05/13/25 13:00 95 05/13/25 12:53 95 05/13/25 11:53 95 05/13/25 10:53 95 05/13/25 10:23 92 05/13/25 10:10 97 05/13/25 10:05 96 05/13/25 09:59 98 Constitutional normal general appearance and no apparent distress 5 feet 5 inches tall, 75.5 kg. Looks stated age. Slightly stuttering speech and word finding. Slightly tremulous when reaching with his hands. HENMT normocephalic and head/scalp atraumatic Hearing aids in place. Eyes PERRL, EOMs intact bilaterally and no scleral icterus Neck/C-Spine supple and no carotid bruits Chest inspection of chest normal Respiratory breath sounds equal bilaterally, normal respiratory effort, clear to auscultation bilaterally, no wheezes, no rales and no retractions Cardiovascular normal heart rate noted, regular rhythm noted, no gallop, no rub and no murmur Gastrointestinal abdomen normal to inspection, abdomen soft to palpation, nontender to palpation and nontender to percussion Klein in place, with clear urine Genitourinary no CVA tenderness and bladder normal to palpation Back/Pelvis spine normal to inspection Extremities normal to palpation, no tenderness and full ROM Right fifth finger is deformed from a previous fracture decades ago Neurology liner inserter II-XII intact, no movement abnormality noted (Occasionally a intention tremor but I think it is fatigue. no focal motor deficit noted and no sensory deficits noted Psychiatry oriented x3, thought process normal and memory abnormal (Occasional hesitation in speech, occasional word finding, occasional vague ) (short term memory loss) Skin skin color normal, no rash and no lesions LABS 05/13/25 05:54 05/13/25 05:54 DIAGNOSTIC IMAGING Diagnostic Imaging Results: Final report reviewed FOLLOW UP Follow Up: Follow up with PCP. Follow up with Urology. TIME SPENT Time Spent in Discharge (Minutes): 35 Discharge Plan Discharge Patient Disposition: Home, Self Care Condition: Stable Prescriptions: New cefdinir 300 mg capsule 300 mg PO BID 3 Days Qty: 6 0RF Continued atorvastatin 80 mg tablet 40 mg PO QPM sertraline 100 mg tablet 200 mg PO DAILY tamsulosin 0.4 mg capsule 0.4 mg PO DAILY metformin 1,000 mg tablet 1,000 mg PO BID Held losartan 50 mg tablet 75 mg PO DAILY Hold Instructions: Resume on 05/27/25. Hold until follow up with PCP. Jardiance 25 mg tablet 25 mg PO DAILY Hold Instructions: Resume on 05/27/25. Hold, per urologist. Activity Restrictions/Additional Instructions: DIET - You may resume your normal diet if there is no nausea or vomiting. You may want to avoid spicy, greasy, or heavy foods today to minimize gas. - If nausea or vomiting occurs, don't eat or drink anything for one hour. Then start drinking small amounts of clear liquids. Later, add crackers, gradually building up to your usual diet. ACTIVITY INSTRUCTIONS * Resume normal activities, but take it easy for a few days (no heavy lifting >10lbs) * No bathing if you have a catheter in place DISCHARGE INSTRUCTIONS * Routine catheter care (if you have one) * Please remove the catheter with your outside urologist or with Dr Robbins in the next week * Call for fever >100.4F * It is normal for some bleeding to occur still, drink extra water and fluid to clear * Make sure you have soft bowel movements with stool softeners, constipation is the enemy! MEDICATIONS * Resume normal medications * Recommend stop empagliflozin (Jardiance) as can cause urinary bother. Followup with PCP to work on your diabetes management * Take antibiotics prescribed * Discuss with your urologist about mirabegron or gemtesa as options to help your urinary bother with low risk of urinary retention and very low side effect profile ANESTHESIA PRECAUTIONS Anesthesia and medications given during surgery remain in your body up to 24 hours. This may slow reaction time and/or decrease coordination. FOR THE NEXT 24 HOURS: - Have a responsible person with you - Avoid any activity that requires you to be alert and coordinated - DO NOT DRIVE a motor vehicle for 24 hours or as long as you are taking opoid pain medication - Do not drink alcoholic beverages - Do not smoke unattended Your blood pressure was a little bit low after surgery. We gave you some fluids, and it recovered well. Please hold your losartan until you follow-up with your primary care provider in the outpatient setting. Patient Date Escort Date RN Date Print Language: Bangladeshi Patient Instructions: Surg Dc Stand Alone Forms: PCP List Follow-up Care: Chapin Platt MD [Primary Care Provider, Internal Medicine] Benton Robbins MD [Provider Admit Priv/Credential, Urology] Referral Note: as needed Followup with your outside urologist next available Vitals documented within 30 minutes of discharge?: Yes
[2025-05-13] MEDS: ACETAMINOPHEN 325 MG TABLET PO PRN (15:04)
[2025-05-13] MEDS: SODIUM CHLORIDE 0.9% 1,000 ML IV ONE (16:17)
--- NOTE | 2025-05-13 16:39 | PHARMACY PROGRESS NOTE ---
Best Possible Medication History Admit Date and Time: 05/12/25 1620 Home Medications Medication Instructions Recorded Confirmed Type atorvastatin 80 mg tablet 40 mg PO QPM 05/12/25 History empagliflozin 25 mg tablet 25 mg PO DAILY 05/12/25 History (Jardiance) Held on 05/13/25. Instructions: Resume on 05/27/25. Hold, per urologist. losartan 50 mg tablet 75 mg PO DAILY 05/12/25/04/09 History metformin 1,000 mg tablet 1,000 mg PO BID 05/12/25 History sertraline 100 mg tablet 200 mg PO DAILY 05/12/25 History tamsulosin 0.4 mg capsule 0.4 mg PO DAILY 05/12/25 History cefdinir 300 mg capsule 300 mg PO BID 3 days #6 caps 05/13/25 Rx Processed by: Pharmacy Medications reviewed in ED?: No Medication History completed: Yes Patient Interview: Completed Secondary Source(s): Pharmacy records and Insurance records [facility] Statement: As the person ultimately responsible for medication therapy, providers are able to order a medication from an existing home medication list in [facility] via the "Reconcile Routine" prior to Confirmation of that medication by patient support partner. Such practice is discouraged except when the physician, in their clinical judgment, deems that a medical need exists for a medication without regard to previous use.
[2025-05-13 16:45] LABS: GLUCOSE, URINE (UA) >=1000 mg/dL (NEGATIVE); KETONES,URINE (UA) NEGATIVE (NEGATIVE); OCCULT BLOOD,URINE LARGE (NEGATIVE)
[2025-05-13 17:01] LABS: SQUAMOUS EPITHELIAL CELL,UR NONE SEEN (<= Few); WBC CLUMPS,URINE PRESENT
[2025-05-13 17:06] VITALS: TEMP 98.6
[2025-05-13 19:00] VITALS: BP 105/62; O2SAT 95
== END 2025-05-13 18:52 | disposition home or self-care (01) ==
LOC: MS3 15:12 → ED 15:12 → MS3 17:30
PROVIDERS: ADMIT Specialist; ATTEND Specialist